=== PATIENT | male | born 1930 | race Caucasian/White ===

== ENCOUNTER 2017-06-24 11:11 | Emergency (ER) | payer OTHER ==
--- NOTE | 2017-06-24 11:42 | CT ---
Head CT Technique: Multiple axial sections through the brain were obtained. Intravenous contrast was not utilized. Comparison: No previous intracranial imaging. Findings: Old infarct is noted in the distribution of the right middle cerebral artery. Diminished density is noted within the right paraventricular and subcortical white matter compatible with change from previous infarct as well as small vessel ischemic demyelination. No other abnormal parenchymal densities are seen. Ventricles along with basal cisterns and sulci over convexities are mildly prominent. No evidence of intracranial hemorrhage. No midline shift or mass effect is appreciated. Mild atherosclerotic calcification is seen within the carotid siphon. Visualized sinuses are clear. No acute calvarial abnormality is seen. Impression: 1. 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 2. Mild generalized atrophy. 3. No acute intracranial abnormality is identified. Diagnostic code #3
--- NOTE | 2017-06-24 12:00 | EDM.PDOC ---
ED HPI GENERAL MEDICAL PROBLEM - General Chief Complaint: Neurological Problem Stated Complaint: [facility] Time Seen by Provider: 06/24/17 11:11 Source of Information: Reports: Patient, EMS Notes Reviewed History Limitations: Reports: No Limitations - History of Present Illness INITIAL COMMENTS - FREE TEXT/NARRATIVE: Patient is a 87-year-old male with a history of atrial fibrillation and stroke to the left side with chronic numbness to left side of his face and left lip facial droop with intermittent drooling. Patient is visiting from [place] to attend a . Family states today patient was in a conversation with other family members and noticed his head bobbing. Patient had a blank stare for approximately 10 minutes with some drooling noted. This resolved quickly and the patient was asymptomatic. He was alert and oriented when EMS arrived. Blood pressure obtained on scene was within normal limits. Patient states he feels as if he's been under a lot of stress recently. There was no seizure activity nor did the patient complaining of incontinence to urine or stool or bite wounds to his tongue/cheek. Denies any fever, chest pain, shortness of breath, headache, numbness or tingling to extremities, weakness to the upper and lower extremities, or sensory deficits noted to extremities. Past mental history includes: Hyperglycemia, coronary disease, A. fib, hypothyroidism, GERD, restless leg syndrome Current medications include atorvostatin 20 mg every day, Cardizem 60 mg 3 times a day, Eliquis 5 mg twice a day, levothyroxin 0.125 one time a day, GERD 40 mg 1 times a day, Tylenol 1 mg 2 times a day. - Related Data Allergies Allergy/AdvReac Type Severity Reaction Status Date / Time No Known Allergies Allergy Verified 06/24/17 11:27 Home Meds: Home Meds Apixaban [Eliquis] 5 mg PO BID 06/24/17 [History] Diltiazem [Cardizem] 60 mg PO TID 06/24/17 [History] Levothyroxine 125 mcg PO ACBREAKFAST 06/24/17 [History] Pantoprazole [ProTONIX] 40 mg PO ACBREAKFAST 06/24/17 [History] atorvaSTATin [Lipitor] 20 mg PO DAILY 06/24/17 [History] rOPINIRole [Requip] 1 mg PO BID 06/24/17 [History] Past Medical History Cardiovascular History: Reports: Afib, High Cholesterol, Hypertension Neurological History: Reports: CVA - Past Surgical History HEENT Surgical History: Reports: Cataract Surgery, Tonsillectomy GI Surgical History: Reports: Cholecystectomy, Hernia Repair/Other Social & Family History - Tobacco Use Smoking Status *Q: Former Smoker Used Tobacco, but Quit: Yes Month Tobacco Last Used: 1974 - Caffeine Use Caffeine Use: Reports: None - Recreational Drug Use Recreational Drug Use: No ED ROS GENERAL - Review of Systems Review Of Systems: ROS reveals no pertinent complaints other than HPI. ED EXAM, NEURO - Physical Exam Exam: See Below Exam Limited By: No Limitations General Appearance: Alert, WD/WN, No Apparent Distress Eye Exam: Bilateral Eye: EOMI, PERRL Ears: Hearing Grossly Normal Nose: Normal Inspection Throat/Mouth: Normal Oropharynx, Normal Voice, No Airway Compromise, Other ( Mild to noted to the corner of the left side of his mouth, chronic, no new change) Head Exam: Atraumatic, Normocephalic Neck: Normal Inspection, Supple, Non-Tender, Full Range of Motion. No: Carotid Bruit, Lymphadenopathy (L), Lymphadenopathy (R) Respiratory/Chest: No Respiratory Distress, Lungs Clear, Normal Breath Sounds, No Accessory Muscle Use, Chest Non-Tender Cardiovascular: Normal Peripheral Pulses, Regular Rate, Rhythm, No JVD, No Murmur GI/Abdominal: Normal Bowel Sounds, Soft, Non-Tender, No Organomegaly, No Distention Neurological: Alert, Normal Mood/Affect, Normal Dorsiflexion, CN II-XII Intact, Normal Plantar Flexion, No Motor/Sensory Deficits, Oriented x 3, Other ( Cerebellar intact including: Finger-nose. No pronator drift. No weakness discrepancy to the upper and lower extremities. No sensory changes noted to the upper and lower extremities.) Back Exam: Normal Inspection Extremities: Normal Inspection, Normal Range of Motion, Non-Tender, No Pedal Edema Psychiatric: Normal Affect, Normal Mood Skin Exam: Warm, Dry, Intact, Normal Color Course - Vital Signs Last Recorded V/S: Last Vital Signs Temp 97.3 F 06/24/17 11:15 Pulse 84 06/24/17 11:15 Resp 18 06/24/17 11:15 BP 104/76 06/24/17 11:15 Pulse Ox 96 06/24/17 11:15 - Orders/Labs/Meds Labs: Laboratory Tests 06/24/17 06/24/17 06/24/17 Range/Units 11:25 11:25 11:25 WBC 8.45 (4.23-9.07) K/mm3 RBC 4.09 L (4.63-6.08) M/mm3 Hgb 13.1 L (13.7-17.5) gm/L Hct 38.9 L (40.1-51.0) % MCV 95.1 H (79.0-92.2) fl MCH 32.0 (25.7-32.2) pg MCHC 33.7 (32.2-35.5) g/dl RDW Std Deviation 44.8 H (35.1-43.9) fL Plt Count 172 (163-337) K/mm3 MPV 9.4 (9.4-12.3) fl Neut % (Auto) 67.6 (34.0-67.9) % Lymph % (Auto) 14.1 L (21.8-53.1) % Brantley % (Auto) 7.0 (5.3-12.2) % Eos % (Auto) 11.1 H (0.8-7.0) Baso % (Auto) 0.1 (0.1-1.2) % Neut # (Auto) 5.71 H (1.78-5.38) K/mm3 Lymph # (Auto) 1.19 L (1.32-3.57) K/mm3 Brantley # (Auto) 0.59 (0.30-0.82) K/mm3 Eos # (Auto) 0.94 H (0.04-0.54) K/mm3 Baso # (Auto) 0.01 (0.01-0.08) K/mm3 PT 11.2 (8.0-13.0) SECONDS INR 1.03 APTT 28 (22-36) SECONDS Sodium 138 (136-145) mEq/L Potassium 4.0 (3.5-5.1) mEq/L Chloride 103 (98-107) mEq/L Carbon Dioxide 24 (21-32) mEq/L Anion Gap 15.0 (5-15) BUN 25 H (7-18) mg/dL Creatinine 1.0 (0.7-1.3) mg/dL Est Cr Clr Drug Dosing 49.58 mL/min Estimated GFR (MDRD) > 60 (>60) mL/min BUN/Creatinine Ratio 25.0 H (14-18) Glucose 137 H (83-115) mg/dL Calcium 8.7 (8.5-10.1) mg/dL Total Bilirubin 0.6 (0.2-1.0) mg/dL AST 18 (15-37) U/L ALT 20 (16-63) U/L Alkaline Phosphatase 108 (46-116) U/L Troponin I < 0.017 (0.00-0.056) ng/mL C-Reactive Protein < 0.2 (<1.0) mg/dL Total Protein 6.9 (6.4-8.2) g/dl Albumin 3.6 (3.4-5.0) g/dl Globulin 3.3 gm/dL Albumin/Globulin Ratio 1.1 (1-2) TSH 3rd Generation 1.159 (0.358-3.74) uIU/mL - Re-Assessments/Exams Free Text/Narrative Re-Assessment/Exam: Symptoms per patient have completely resolved with admission to the ED. He does have prominent left-sided numbness with droopiness noted to the corner of the left side of his mouth with some intermittent drooling noted. This is unchanged. Will obtain basic labs, coag studies, troponin, TSh, CXR, CT Head w/o contrast, and EKG. Head CT impression: Old right-sided infarct. Mild generalized atrophy. No acute intracranial abnormality is identified. EKG sinus rhythm at a rate of 56, right bundle branch block, left anterior fascicular block, no acute ST changes noted. Labs reviewed: White blood cell count 8.45, hemoglobin 13.1, platelet count 172 , chem 14 essentially normal. Glucose 137 ear troponin less than 0.017, CRP is less than 0.2, TSH 1.159. 1314 Patient's niece is present. States the patient had just had a nice breakfast approximately 45 minutes to an hour prior to episode. She states she was showing the patient pictures on her phone. She noted the patient's head was bobbing up and down. Could not see his eyes do to bright sunlight behind him. Other family member was talking to the patient as well and found that he was confused with eyes open not really following what was going on. This only lasted for approximately 10 seconds. Patient states he felt tired since he did not sleep well last night and then had a big breakfast. Patient came to quite quickly when family came concerned. Niece maybe thinks patient had fallen asleep during the conversation. At this point the patient has no complaints. And he is wishing to be discharged home. Departure - Departure Time of Disposition: 13:31 Disposition: Home, Self-Care 01 Condition: Good Clinical Impression: Altered level of consciousness - Discharge Information Instructions: Transient Ischemic Attack, [id number] Referrals: PCP,Not In Area [Primary Care Provider] - Forms: ED Department Discharge Additional Instructions: As discussed CT of the head, EKG, and labs did not reveal any concerning findings. With further discussion with your niece it appears you may have fallen asleep during your conversation while looking at pictures. You may have had a TIA but this is a low probability. Will have you continue taking all your home medications as prescribed. Follow-up with your PCP or upon returning home. If you develop and new or worsening symptoms please return back to the ED.
--- NOTE | 2017-06-24 12:09 | CR ---
Chest: Portable view of the chest was obtained. Comparison: No previous chest x-ray. Heart size within normal limits for portable technique. Tortuous thoracic aorta is seen. Lungs are clear without acute infiltrates. Bony structures are osteopenic. Mild scoliosis is noted within the spine. Impression: 1. Nothing acute is identified on portable chest x-ray. Diagnostic code #2
== END 2017-06-24 13:43 | disposition home or self-care (01) ==
LOC: JD.ED 11:11
DX: R40.4 Transient alteration of awareness (principal); E78.00 Pure hypercholesterolemia, unspecified; Z79.899 Other long term (current) drug therapy; Z87.891 Personal history of nicotine dependence
CPT/HCPCS: 36415; 70450; 70450-26; 71010; 71010-26; 80053; 84443; 84484; 85025; 85610; 85730; 86140; 93005; 93010; 99284; 99285-25